=== PATIENT | female | born 1960 | race Caucasian/White ===

== ENCOUNTER 2020-05-05 05:19 | Day surgery (SDC) | payer OTHER ==
[2020-04-06 12:05] VITALS: BMI 25.4
--- NOTE | 2020-05-04 21:57 | PROC ---
Procedure Note Procedure: Pre procedure Diagnosis: Lumbar Spondylosis Post Procedure Diagnosis: same Anesthesia: Local Procedure Performed: Right and Left L3 L4 L5 Medial Branch Blocks under Fluoroscopic Guidance Procedure: After the risks and benefits were explained, informed consent was obtained. The patient was then taken to the procedure room and positioned prone on the procedure table. Time out was performed. The region overlying the appropriate vertebral bodies was identified using fluoroscopy. The skin was prepped and draped in the usual sterile fashion. The skin and soft tissues were anesthetized using 1% lidocaine. Using fluoroscopic guidance, 22 gauge 3.5 inch spinal needles were then introduced to the juncture of the superior articular processes and the transverse processes of the RIGHT L3, L4, and L5 medial branches are located. Omnipaque 180 confirmed appropriate needle placement. There was no epidural or vascular flow observed. .75% bupivacaine was drawn into a syringe. 0.5cc of this solution was then injected at each level. The same procedure was repeated on the LEFT side at the same levels. The patient tolerated the procedure well and there were no complications. The patient was taken to the post procedure recovery area in good condition. Vital signs remained stable before, and after the procedure. The patient was given oral follow-up instructions.The patient was givena follow up appointment with me in the near future. Elais Barbour D.O.
--- OUTSIDE RECORDS SUMMARY | 2020-05-05 05:23 | XMS ---
:1960 Author Organization [facility] Care Team Providers Name Role Phone Leonardo Veliz Unavailable Unavailable Erosa, Elias Unavailable Erosa, Elias Unavailable Lufrano, Savannah Unavailable Unavailable Lufrano, Savannah Unavailable Unavailable Lufrano, Savannah Unavailable Unavailable Lufrano, Savannah Unavailable Unavailable Lufrano, Savannah Unavailable Unavailable Lufrano, Savannah Unavailable Unavailable Lufrano, Savannah Unavailable Unavailable Paresh, Itha MD Unavailable Unavailable Paresh, Itha MD Unavailable Unavailable Paresh, Itha MD Unavailable Unavailable Paresh, Itha MD Unavailable Unavailable Paresh, Itha MD Unavailable Unavailable Paresh, Itha MD Unavailable Unavailable Paresh, Itha MD Unavailable Unavailable Paresh, Itha MD Unavailable Unavailable Paresh, Itha MD Unavailable Unavailable Paresh, Itha MD Unavailable Unavailable Paresh, Itha MD Unavailable Unavailable Paresh, Itha MD Unavailable Unavailable Paresh, Itha MD Unavailable Unavailable Paresh, Itha MD Unavailable Unavailable Paresh, Itha MD Unavailable Unavailable Re-disclosure Warning The records that you are about to access may contain information from federally- assisted alcohol or drug abuse programs. If such information is present, then the following federally mandated warning applies: This information has been disclosed to you from records protected by federal confidentiality rules (42 CFR part 2). The federal rules prohibit you from making any further disclosure of this information unless further disclosure is expressly permitted by the written consent of the person to whom it pertains or as otherwise permitted by 42 CFR part 2. A general authorization for the release of medical or other information is NOT sufficient for this purpose. The Federal rules restrict any use of the information to criminally investigate or prosecute any alcohol or drug abuse patient.The records that you are about to access may contain highly sensitive health information, the redisclosure of which is protected by Article 27-F of the [facility] Public Health law. If you continue you may haveaccess to information: Regarding HIV / AIDS; Provided by facilities licensed or operated by the [facility] Office of Mental Health; or Provided by the [facility] Office for People With Developmental Disabilities. If such information is present, then the following [facility] mandated warning applies: This information has been disclosed to you from confidential records which are protected by state law. State law prohibits you from making any further disclosure of this information without the specific written consent of the person to whom it pertains, or as otherwise permitted by law. Any unauthorized further disclosure in violation of state law may result in a fine or snf sentence or both. A general authorization for the release of medical or other information is NOT sufficient authorization for further disclosure. Encounters Encounter Providers Location Date Indications Data Source(s ) Attender: Elias 04/25/2020 [facility] ([facility] 12:00:00 AM EDT [facility]) Office Attender: Elias Barbour 03/30/2020 12:00:00 AM EDT [facility] ([facility] Office Attender: Elias Barbour 03/30/2020 12:00:00 AM EDT [facility] ([facility] Office Attender: Elias Barbour 03/30/2020 12:00:00 AM EDT [facility] ([facility] Office Attender: Elias Barbour 03/30/2020 12:00:00 AM EDT [facility] ([facility] Office Attender: Elias Barbour 03/30/2020 12:00:00 AM EDT [facility] ([facility] Office Attender: Elias Barbour 03/30/2020 12:00:00 AM EDT [facility] ([facility] Office Attender: Savannah Dodd 03/20/2020 12:00:00 AM [place] [facility] [place] [place]patient Attender: Nga 5T-LAB 12/22/2019 09:58:00 AM [facility] - Jean Yoder MD EDT - 12/22/2019 Hospita l 11:59:00 PM EDT Patient discharged. Outpatient Attender: Leonadro Torres 5T-LAB [facility] 11:59:00 PM EST Patient discharged. Outpatient Attender: Leonardo Torres 5T-LAB 08/06/2019 08:32:00 AM [facility] - [place] [facility] EST - 08/06/2019 Hospital 11:59:00 PM EST Patient discharged. Outpatient Attender: Leonardo Torres 5T-LAB 04/09/2019 08:45:00 AM [facility] - Jean Mcmillan EDT - 04/09/2019 Hospital 11:59:00 PM EDT Patient discharged. Medications Medication Brand Start Product Dose Route Administrative [facility] Indications Reaction Description Data Name Date Form Instructions Instructions Source(s) Diclofenac DICLOF 04/03/ GEL 1 complet DICLOFE NAC MEDGEN (St Sodium 0.01 2019 ed TOPICAL [facility]/MG TOPICA 12:00: Medical, Topical Gel L:8556 00 AM PC) DICLOFENAC 33 EDT TOPICAL:855 633 Diclofenac DICLOF 14/ GEL 1 complet DICLOFE NAC MED[facility] (St Sodium 0.01 2019 ed TOPICAL [facility]/MG TOPICA 12:00: Medical, Topical Gel L:8556 00 AM PC) DICLOFENAC 33 EDT TOPICAL:855 633 Diclofenac DICLOF 14/ GEL 1 complet DICLOFE NAC MED[facility] (St Sodium 0.01 2019 ed TOPICAL [facility] MG/MG TOPICA 12:00: Medical, Topical Gel L:8556 00 AM PC) DICLOFENAC 33 EDT TOPICAL:855 633 TEROCIN complet TEROCIN MEDG EN (St EXTERNAL 2019 ed EXTERNAL [facility] LOTION: 12:00: [facility] Medical, 00 AM PC) EDT TEROCIN complet TEROCIN MEDG EN (St EXTERNAL 2020 ed EXTERNAL [facility] LOTION: 12:00: LOTION Medical, 00 AM PC) EDT SPLINT complet SPLINT WRIST MEDGEN (St WRIST 2020 ed BRACE/LEFT-R [facility] BRACE/LEFT- 12:00: IGHT Medica l, RIGHT 00 AM MISCELLANEOU PC) MISCELLANEO EDT S US ADJUSTABLE, ADJUSTABLE, LATEX FREE, LATEX FREE, ONE SIZE ONE SIZE: ELBOW complet ELBOW MEDGEN ( St COMPRESSION 2019 ed COMPRESSION J [facility]n's MISCELLANEO 12:00: MISCELLANEO U Medical, US: 00 AM S PC) EDT ELBOW complet ELBOW MEDGEN ( St COMPRESSION 2019 ed COMPRESSION [facility] MISCELLANEO 12:00: MISCELLANEO U Medical, US: 00 AM S PC) EDT ELBOW complet ELBOW MEDGEN ( St COMPRESSION 2019 ed COMPRESSION J [facility]n's MISCELLANEO 12:00: MISCELLANEO U Medical, US: 00 AM S PC) EDT SPLINT complet SPLINT WRIST MEDGEN (St WRIST 2019 ed BRACE/LEFT-R [facility] BRACE/LEFT- 12:00: IGHT Medica l, RIGHT 00 AM MISCELLANEOU PC) MISCELLANEO EDT S US ADJUSTABLE, ADJUSTABLE, LATEX FREE, LATEX FREE, ONE SIZE ONE SIZE: TEROCIN complet TEROCIN MEDG EN (St EXTERNAL 2019 ed EXTERNAL [facility] LOTION: 12:00: LOTION Medical, 00 AM PC) EDT SPLINT complet SPLINT WRIST MEDGEN (St WRIST 2019 ed BRACE/LEFT-R [facility] BRACE/LEFT- 12:00: IGHT Medica l, RIGHT 00 AM MISCELLANEOU PC) MISCELLANEO EDT S US ADJUSTABLE, ADJUSTABLE, LATEX FREE, LATEX FREE, ONE SIZE ONE SIZE: SUPREP 03/20/ LIQUID 1 complet SUPREP CHRISTIAN L MED[facility] (St BOWEL PREP 2019 ed PREP KIT [facility] KIT:[id number] 12:00: Medica l, 00 AM PC) EDT SUPREP 03/20/ LIQUID 1 complet SUPREP CHRISTIAN L MED[facility] (St BOWEL PREP 2020 ed PREP KIT [facility] KIT:[id number] 12:00: Medica l, 00 AM PC) EDT SUPREP LIQUID 1 complet SUPREP CHRISTIAN L MEDGEN (St BOWEL PREP 2020 ed PREP KIT [facility] KIT:[id number] 12:00: Medica l, 00 AM PC) EDT SUPREP LIQUID 1 complet SUPREP CHRISTIAN L MEDGEN (St BOWEL PREP 2020 ed PREP KIT Jd huang KIT:[id number] 12:00: Medica l, 00 AM PC) EDT Insurance Providers Payer name Policy type / Policy ID Covered Covered libertarian's Policy Plan Coverage type libertarian ID relationship to Thompson Information thompson HE[employer] FIRST [id number] SP [id number] F HEALTH FIRST [id number] SP [id number] F HEALTH FIRST [id number] F CLAIMS Healthfirst Commercial [id number] 1 [id number] F Medicaid Medicaid [facility] Medicaid [id number] F [facility] Medicaid 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 ) M62.830 Muscle spasm of MUSCLE SPASM OF Problem 03/30/2020 MEDG EN (St back BACK 12:00:00 AM [facility], ) M47.896 Other spondylosis, OTHER SPONDYLOSIS, Problem 0 MED[facility] (St lumbar region LUMBAR REGION 12:00:[address] [facility], ) M25.521 Pain in right elbow PAIN IN RIGHT ELBOW Problem 020 MED[facility] (St 12:00:00 AM [facility], ) M79.18 MYALGIA, OTHER SITE MYALGIA, OTHER SITE Problem 020 [facility] ([facility] 12:00:[address] [facility] ) M62.830 Muscle spasm of MUSCLE SPASM OF Problem 03/30/2020 MEDG EN (St back BACK 12:00:00 AM [facility]) M47.896 Other spondylosis, OTHER SPONDYLOSIS, Problem 0 MEDGEN (St lumbar region LUMBAR REGION 12:00:00 AM [facility]) M25.521 Pain in right elbow PAIN IN RIGHT ELBOW Problem 020 MEDGEN (St 12:00:00 AM [facility]) M79.18 MYALGIA, OTHER SITE MYALGIA, OTHER SITE Problem 020 MEDGEN (St 12:00:00 AM [facility]) M62.830 Muscle spasm of MUSCLE SPASM OF Problem 03/30/2020 MEDG EN (St back BACK 12:00:00 AM [facility]) M47.896 Other spondylosis, OTHER SPONDYLOSIS, Problem 0 MEDGEN (St lumbar region LUMBAR REGION 12:00:00 AM [facility]) M25.521 Pain in right elbow PAIN IN RIGHT ELBOW Problem 020 MED[facility] (St 12:00:00 AM [facility]) Z12.11 Encounter for ENCOUNTER FOR Problem 03/20/2020 MEDGEN ( St screening for SCREENING FOR 12:00:00 AM [facility] malignant neoplasm MALIGNANT NEOPLASM [facility]) of colon OF COLON Z12.11 Encounter for ENCOUNTER FOR Problem 03/20/2020 MEDGEN ( St screening for SCREENING FOR 12:00:00 AM [facility] malignant neoplasm MALIGNANT NEOPLASM [facility]) of colon OF COLON Z12.11 Encounter for ENCOUNTER FOR Problem 03/20/2020 MED[facility] ( St screening for SCREENING FOR 12:00:00 AM [facility] malignant neoplasm MALIGNANT NEOPLASM [facility]) of colon OF COLON Z12.11 Encounter for ENCOUNTER FOR Problem 03/20/2020 MEDGEN ( St screening for SCREENING FOR 12:00:00 AM [facility]'s malignant neoplasm MALIGNANT NEOPLASM [facility]) of colon OF COLON Z11.59 Encounter for Screening for viral Diagnosis 12/22/2019 [facility] S [facility] [place] screening for other disease 09:58:00 AM Sai on viral diseases [facility] I49.3 Ventricular Ventricular Diagnosis 09/10/2019 S [facility] [place] premature premature 08:20:00 AM Ken depolarization depolarization EST Hospit al Surgeries/Procedures Procedure Description Date Indications Data Source(s) Documentation of current 04/25/2020 [facility] ([facility] medications (procedure) 12:00:00 AM EDT ELOY liu) OFFICE OUTPATIENT VISIT 04/25/2020 [facility] EN ([facility] 15 MINUTES 12:00:00 AM [facility] ) Documentation of current 03/30/2020 MED [facility] ([facility] medications (procedure) 12:00:00 AM EDT [facility], PC) Documentation of current 03/30/2020 [facility] ([facility] medications (procedure) 12:00:00 AM EDT [facility], PC) Documentation of current 03/30/2020 [facility] ([facility] medications (procedure) 12:00:00 AM EDT [facility], PC) Documentation of current 03/30/2020 [facility] ([facility] medications (procedure) 12:00:00 AM EDT [facility] PC) Documentation of current 03/30/2020 [facility] ([facility] medications (procedure) 12:00:00 AM EDT [facility], PC) Documentation of current 03/30/2020 [facility] ([facility] medications (procedure) 12:00:00 AM EDT [facility], PC) Documentation of current 03/30/2020 [facility] ([facility] medications (procedure) 12:00:00 AM EDT [facility], PC) Documentation of current 03/30/2020 [facility] ([facility] medications (procedure) 12:00:00 AM EDT [facility] PC) Documentation of current 03/30/2020 [facility] ([facility] medications (procedure) 12:00:00 AM EDT [facility] PC) Documentation of current 03/30/2020 [facility] ([facility] medications (procedure) 12:00:00 AM EDT [facility], PC) Documentation of current 03/30/2020 [facility] ([facility] medications (procedure) 12:00:00 AM EDT [facility], PC) Documentation of current 03/30/2020 [facility] ([facility] medications (procedure) 12:00:00 AM EDT alexa PC) Documentation of current 03/30/2020 [facility] ([facility] medications (procedure) 12:00:00 AM EDT alexa, ) Documentation of current 03/30/2020 [facility] ([facility] medications (procedure) 12:00:00 AM EDT [facility] PC) Documentation of current 03/30/2020 [facility] ([facility] medications (procedure) 12:00:00 AM EDT alexa, ) Documentation of current 03/30/2020 [facility] ([facility] medications (procedure) 12:00:00 AM EDT alexa ) Injection, ketorolac 03/30/2020 [facility] ([facility] tromethamine, per 15 mg 12:00:00 AM EDT alexa, ) OFFICE OUTPATIENT VISIT 03/30/2020 MED[facility] EN ([facility] 25 MINUTES 12:00:00 AM [facility], ) INJECTION SINGLE/PHONE MANAGER 03/30/2020 [facility] ([facility] TRIGGER POINT 1/2 MUSCLES 12:00:00 AM [facility], ) Documentation of current 03/30/2020 MED [facility] ([facility] medications (procedure) 12:00:00 AM EDT alexa ) Documentation of current 03/30/2020 MED [facility] ([facility] medications (procedure) 12:00:00 AM EDT alexa PC) Documentation of current 03/30/2020 MED [facility] ([facility] medications (procedure) 12:00:00 AM EDT alexa ) Documentation of current 03/30/2020 [facility] ([facility] medications (procedure) 12:00:00 AM EDT [facility], PC) Documentation of current 03/30/2020 [facility] ([facility] medications (procedure) 12:00:00 AM EDT alexa PC) Documentation of current 03/30/2020 MED [facility] ([facility] medications (procedure) 12:00:00 AM EDT alexa, PC) Documentation of current 03/30/2020 MED [facility] ([facility] medications (procedure) 12:00:00 AM EDT [facility], PC) Documentation of current 03/30/2020 MED [facility] ([facility] medications (procedure) 12:00:00 AM EDT [facility], PC) Documentation of current 03/30/2020 MED [facility] ([facility] medications (procedure) 12:00:00 AM EDT [facility], ) Documentation of current 03/30/2020 MED [facility] ([facility] medications (procedure) 12:00:00 AM EDT [facility], ) Documentation of current 03/30/2020 MED [facility] ([facility] medications (procedure) 12:00:00 AM T [facility], ) Documentation of current 03/30/2020 MED [facility] ([facility] medications (procedure) 12:00:00 AM [facility], ) Documentation of current 03/30/2020 MED [facility] ([facility] medications (procedure) 12:00:00 AM [facility], ) Injection, bupivicaine 03/30/2020 MEDGE N ([facility] hydrochloride, 30 ml 12:00:00 AM [facility]) Injection, lidocaine hcl 03/30/2020 MED [facility] ([facility] for intravenous infusion, 12:00:00 AM [facility]) 10 mg Injection, ketorolac 03/30/2020 [facility] ([facility] tromethamine, per 15 mg 12:00:00 AM [facility], ) OFFICE OUTPATIENT VISIT 03/30/2020 MEDG EN ([facility] 25 MINUTES 12:00:00 AM [facility]) INJECTION SINGLE/PHONE MANAGER 03/30/2020 [facility] ([facility] TRIGGER POINT 1/2 MUSCLES 12:00:00 AM [facility]) Documentation of current 03/30/2020 MED [facility] ([facility] medications (procedure) 12:00:00 AM [facility] Documentation of current 03/30/2020 MED [facility] ([facility] medications (procedure) 12:00:00 AM T [facility] ) Documentation of current 03/30/2020 MED [facility] ([facility] medications (procedure) 12:00:00 AM [facility], ) Documentation of current 03/30/2020 MED [facility] ([facility] medications (procedure) 12:00:00 AM T [facility], ) Documentation of current 03/30/2020 MED [facility] ([facility] medications (procedure) 12:00:00 AM [facility], ) Documentation of current 03/30/2020 MED GEN ([facility] medications (procedure) 12:00:00 AM T alexa, ELOY) Documentation of current 03/30/2020 MED [facility] ([facility] medications (procedure) 12:00:00 AM EDT Judie liu, PC) Documentation of current 03/30/2020 MED [facility] ([facility] medications (procedure) 12:00:00 AM EDT [facility], PC) Documentation of current 03/30/2020 MED [facility] ([facility] medications (procedure) 12:00:00 AM EDT [facility], PC) Documentation of current 03/20/2020 MED [facility] ([facility] medications (procedure) 12:00:00 AM EDT [facility]lexa, PC) Documentation of current 03/20/2020 MED [facility] ([facility] medications (procedure) 12:00:00 AM EDT [facility], PC) Documentation of current 03/20/2020 MED [facility] ([facility] medications (procedure) 12:00:00 AM EDT [facility], PC) Documentation of current 03/20/2020 MED [facility] ([facility] medications (procedure) 12:00:00 AM EDT ELOY liu) Documentation of current 03/20/2020 MED [facility] ([facility] medications (procedure) 12:00:00 AM EDT [facility] PC) Documentation of current 03/20/2020 MED [facility] ([facility] medications (procedure) 12:00:00 AM EDT ELOY liu) OFFICE OUTPATIENT NEW 30 03/20/2020 MED [facility] ([facility] MINUTES 12:00:00 AM ATIYA Holliday PC) Documentation of current 03/20/2020 MED [facility] ([facility] medications (procedure) 12:00:00 AM EDT ELOY liu) Documentation of current 03/20/2020 MED [facility] ([facility] medications (procedure) 12:00:00 AM EDT [facility] PC) Documentation of current 03/20/2020 [facility] ([facility] medications (procedure) 12:00:00 AM EDT [facility]lex[facility], PC) Documentation of current 03/20/2020 MED [facility] ([facility] medications (procedure) 12:00:00 AM EDT [facility]lex[facility], PC) Documentation of current 03/20/2020 MED [facility] ([facility] medications (procedure) 12:00:00 AM EDT Judie liu, PC) Documentation of current 03/20/2020 MED [facility] ([facility] medications (procedure) 12:00:00 AM EDT [facility], PC) OFFICE OUTPATIENT NEW 03/20/2020 MED [facility] ([facility] MINUTES 12:00:00 AM EDT Medical, PC) Documentation of current 03/20/2020 MED [facility] ([facility] medications (procedure) 12:00:00 AM EDT anaical, PC) Documentation of current 03/20/2020 MED GEN ([facility] medications (procedure) 12:00:00 AM EDT alexa, PC) Documentation of current 03/20/2020 MED [facility] ([facility] medications (procedure) 12:00:00 AM EDT alexa, PC) Documentation of current 03/20/2020 MED [facility] ([facility] medications (procedure) 12:00:00 AM EDT alexa, PC) Documentation of current 03/20/2020 MED [facility] ([facility] medications (procedure) 12:00:00 AM EDT alexa, PC) Documentation of current 03/20/2020 MED [facility] ([facility] medications (procedure) 12:00:00 AM EDT alexa, PC) OFFICE OUTPATIENT NEW 03/20/2020 MED [facility] ([facility] MINUTES 12:00:00 AM EDT Medical, PC) Documentation of current 03/20/2020 MED [facility] ([facility] medications (procedure) 12:00:00 AM EDT alex[facility], PC) OFFICE CONSULTATION 03/20/2020 [facility] ( [facility] NEW/ESTAB PATIENT 40 MIN 12:00:00 AM EDT Medical, PC) Venipuncture 09/10/2019 [facility] 08:32:38 AM EST System - 09/10/2019 10:00:07 AM EST Venipuncture 08/06/2019 [facility] 08:44:33 AM EST System - 08/06/2019 10:00:06 AM EST Venipuncture 04/09/2019 [facility] 08:56:21 AM EDT System - 04/09/2019 10:00:05 AM EDT CBC w/Auto Differential- 04/09/2019 [facility] MV Only 08:56:21 AM EDT System - 04/09/2019 09:03:00 AM EDT Results ID Date Data Source [id number] 04/30/2020 11:05:00 AM EDT [facility] Name Value Range Interpretation Description Data Sup porting Code Source(s) Document(s ) SARS [facility] coronavirus 2 RNA This lab was ordered by [facility] and reported by [facility]. ID Date Data Source [id number] 04/02/2020 11:41:00 AM EDT [facility] Name Value Range Interpretation Description Data Sup porting Code Source(s) Document(s ) SARS [facility] coronavirus 2 RNA This lab was ordered by [facility] and reported by [facility]. ID Date Data Source [id number] 02/10/2020 02:45:00 PM EDT [facility] Name Value Range Interpretation Code Description Data Sarah rce(s) Supporting Document(s ) COV2 [facility] This lab was ordered by [facility] tee reported by [facility]. ID Date Data Source [id number] 09/16/2011 08:31:36 AM EST [facility] Name Value Range Interpretation Description Data Source(s ) Supporting Code Document(s ) DirectAn Negative Normal (applies to Direct [facility] tiglobul non-numeric Antiglobulin [facility] inTest. results) Test. ID Date Data Source [id number] 09/16/2011 08:31:36 AM EST [facility] Name Value Range Interpretation Description Data Sup porting Code Source(s) Document(s ) Type A Normal (applies Type [facility] to non-numeric Health results) System AntibodyScreen Negative Normal (applies Antibody [facility] to non-numeric Screen Health results) System D Ab [Titer] in Rh Normal (applies Rh Factor, [facility] Serum or Plasma Positive to non-numeric Whole Blood Health results) System ID Date Data Source [id number] 09/16/2011 11:46:29 AM EST [facility] Name Value Range Interpretation Description Data Sup porting Code Source(s) Document(s ) D Ab [Titer] in Rh Normal (applies Rh Factor, [facility] Serum or Plasma Positive to non-numeric Whole Blood Health results) System Type A Normal (applies Type [facility] to non-numeric Health results) System AntibodyScreen Negative Normal (applies Antibody [facility] to non-numeric Screen Health results) System ID Date Data Source [id number] 09/16/2011 03:38:20 PM EST [facility] blood for type and crossmatch stat Name Value Range Interpretation Description Data Sup porting Code Source(s) Document(s ) D Ab [Titer] in Cancelled Rh Factor, [facility] Serum or Plasma [facility] System Rh/Du Cancelled Rh/Du [facility] Type Cancelled Type [facility] AntibodyScreen Cancelled Antibody [facility] duplicate Screen Health order System ID Date Data Source [id number] 09/16/2011 05:10:00 PM EST [facility] Name Value Range Interpretation Description Data Sup porting Code Source(s) Document(s ) TissueExam SEE TEXT Normal (applies Tissue Exam [facility] CLINICAL to non-numeric Health INFORMATION: results) System Menorrhagia, fibroid uterus.PREOPERAT JUAN DIAGNOSIS: Same.POSTOPERATI VE DIAGNOSIS: Same.Surgical Pathology ReportFINAL DIAGNOSIS:Uterus , morsellated hysterectomy:Con sistent with leiomyomas and adenomyomas.Prol iferative endometrium with extensive adenomyosis.BRAYAN S DESCRIPTION:In formalin, labeled "uterus with fibroids", the specimen consists of multiple irregularly shaped but predominantly cylindrical to spiral pieces of ratliff firm tissue, consistent with morsellated uterus, together weighing approximately 200grams. Some of the pieces are surfaced by a layer of fibrous tissue consistent with uterine serosa. Focal brown, finely granular lining appears to represent the endometrial surface. Cut sections of some of the cylinders reveal homogeneous ratliff shining tissue. Others have a coarser vaguely whorled cut surface consistent with fibroids. Vice President Underwriting sections are submitted. Summary of sections: #1,2- presumable endometrium; #3-6- fibroids.GO/stEl ectronically signed [email or web address](Signed out 09/19/2011) ID Date Data Source [id number] 09/17/2011 07:55:00 AM EST [facility] Name Value Range Interpretation Description Data Sup porting Code Source(s) Document(s ) Erythrocytes 3.95 Normal (applies RBC Count [facility] [#/volume] in {10\\S\\6_ to non-numeric Health Blood by uL} results) System Automated count Leukocytes 14.1 Above high normal WBC Count [facility] [#/volume] in {10\\S\\3_ Health Unspecified uL} System specimen by Automated count Hemoglobin 10.6 Below low normal Hemoglobin, [facility] [Mass/volume] in {gm/dL} Whole Blood Health Blood System Erythrocyte mean 31.6 Below low normal [facility] corpuscular {gm/dL} Health hemoglobin System concentration [Mass/volume] by Automated count Erythrocyte mean 84.8 fl Normal (applies MCV [facility] corpuscular to non-numeric Health volume [Entitic results) System volume] by Automated count Erythrocyte 15.5 % Above high normal RDW [facility] distribution Health width [Entitic System volume] by Automated count Hematocrit 33.5 % Below low normal Hematocrit, [facility] [Volume Whole Blood Health Fraction] of System Blood Erythrocyte mean 26.8 pg Normal (applies MCH [facility] corpuscular to non-numeric Health hemoglobin results) System [Entitic mass] by Automated count Platelet mean 9.9 fl Normal (applies MPV [facility] volume [Entitic to non-numeric Health volume] in Blood results) System by Automated count Eosinophils 0.0 Normal (applies Eosinophil [facility] [#/volume] in {10\\S\\3} to non-numeric Count Blood Health Blood results) System Platelets 293 Normal (applies Platelet [facility] [#/volume] in {10\\S\\3_ to non-numeric Count Health Plasma by uL} results) System Automated count Monocytes 1.5 Normal (applies Monocyte [facility] [#/volume] in {10\\S\\3_ to non-numeric Count Health Blood by Manual uL} results) System count Basophils 0.01 Normal (applies Basophil [facility] [#/volume] in {10\\S\\3_ to non-numeric Count Health Blood by uL} results) System Automated count Neutrophils/100 78.3 % Normal (applies Neutrophil % Jos eAngel shmuel leukocytes in to non-numeric Health Blood by results) System Automated count Neutrophils 11.0 Normal (applies Absolute [facility] [#/volume] in {10\\S\\3_ to non-numeric Neutrophil Health Body fluid uL} results) Count System Lymphocyte 1.6 Normal (applies Lymphocyte [facility] percent {10\\S\\3_ to non-numeric Absolute Health differential uL} results) System count (procedure) Monocytes/100 10 % Above high normal Monocyte % [facility] leukocytes in Health Blood System Basophils/100 0 % Normal (applies Basophil % [facility] leukocytes in to non-numeric Health Unspecified results) System specimen by Manual count Lymphocytes 11 % Below low normal Lymphocyte % [facility] [#/volume] in Health Blood by System Automated count Eosinophils/100 0 % Below low normal Eosinophil % [facility] leukocytes in Health Unspecified System specimen ID Date Data Source [id number] 02/18/2012 02:00:00 PM EDT [facility] Name Value Range Interpretation Description Data Sup porting Code Source(s) Document(s ) Bacteria Micro Result Final Normal (applies Cult Female [facility] identified Culture Reading to non-numeric Genital Health in Genital Note::NEGATIVE FOR results) System specimen by NEISSERIA Aerobe GONORRHEAOAENEGATI culture VE FOR YEASTLIKE ORGANISMSNEGATIVE FOR GROUP B BETA HEMOLYTIC STREPTOCOCCI ID Date Data Source [id number] 02/18/2012 02:21:00 PM EDT [facility] Name Value Range Interpretation Description Data Sup porting Code Source(s) Document(s ) C.Trac Not Normal (applies C. [facility] homati DetectedReference to non-numeric Trachomatis Healt h sAmp Range: Not Detected results) Amp System N.Gono Not Normal (applies N. Gonorrhea [facility] rrheab DetectedReference to non-numeric by LCR Health yLCR Range: Not Detected results) System This test was performed using the BD ProbeT[employer](TM) Chlamydia trachomatis and Neisseria gonorrhoeae Amplified DNA Assays. Test Performed at: [facility], [place] [address] Chantel Suresh M.D. ID Date Data Source [id number] 02/18/2012 02:21:00 PM EDT [facility] Name Value Range Interpretation Description Data Sup porting Code Source(s) Document(s ) Trichomonas T. VAGINALIS Normal (applies Trichomonas [facility] vaginalis CULTURESOURCE to non-numeric Wet [facility] [Presence] in : results) System Unspecified specimen by GENITALT. Wet VAGINALIS preparation CULTURE: FINALT. VAGINALIS CULTURE: No Trichomonas vaginalis seen. ID Date Data Source [id number] 05/25/2012 07:42:00 AM EST [facility] Name Value Range Interpretation Description Data Sup porting Code Source(s) Document(s ) Color YELLOW Normal (applies Color [facility] to non-numeric Health results) System Appearance of CLEAR Normal (applies Urine [facility] Urine to non-numeric Appearance Health results) System pH.. 6.5 Normal (applies pH.. [facility] {pH_units} to non-numeric Health results) System Specific 1.020 Normal (applies Urine [facility] gravity of to non-numeric Specific Health Urine results) [place] [facility] Glucose,UA NEGATIVE Normal (applies Glucose, UA [facility] to non-numeric Health results) System Negative Protein NEGATIVE Normal (applies Protein [facility] [Mass/volume] in to non-numeric Health S yste Serum or Plasma results) BilirubinUrine NEGATIVE Normal (applies Bilirubin Urine [facility] to non-numeric Health System results) Urobilinogen 0.20 {eu/dL} Normal (applies Urobilinogen UA [facility] [Mass/volume] in to non-numeric Health S yste Urine results) Ketones NEGATIVE Normal (applies Ketones UA [facility] [Mass/volume] in to non-numeric Health S yste Urine results) Negative Nitrate+Nitrite NEGATIVE Normal (applies to Nitrite Jose Angel shmuel Health [Mass/volume] in non-numeric results) Sy stem Unspecified specimen Negative Leukocyte esterase NEGATIVE Normal (applies Leukocyte Kena ase [facility] [Units/volume] in to non-numeric Concentration a [facility] System Urine results) Negative Leukocytes 0-3 Normal (applies to White Blood Cells [facility] [#/volume] in non-numeric System Unspecified specimen results) by Automated count Epithelial cells 3-5 Normal (applies to Epithelial Betzaida ls [facility] Health [Presence] in non-numeric System Unspecified specimen results) by Wet preparation RedBloodCells 0-3 Normal (applies to Red Blood Cells [facility] non-numeric System results) Bacteria [Presence] rare Normal (app[facility] in Unspecified non-numeric System specimen results) UrineBlood NEGATIVE Normal (applies to Urine Blood [facility] non-numeric System results) ID Date Data Source [id number] 05/25/2012 07:42:00 AM EST [facility] al[facility] System Name Value Range Interpretation Description Data Sup porting Code Source(s) Document(s ) aPTT in Blood 25.7 Normal (applies Activated [facility] by Coagulation {Seconds to non-numeric Partial Health assay } results) Thromboplastin System Time ID Date Data Source [id number] 05/25/2012 07:42:00 AM EST [facility] System Name Value Range Interpretation Description Data Sup porting Code Source(s) Document(s ) INR in Blood by 0.94 Normal (applies INR Result [facility] Coagulation {Ratio} to non-numeric Health System assay results) Normal = 0.7-1.1Therapeutic = 2.0-3.0Mec hanical Heart = 3.0-4.5 Prothrombintime(PT) 10.10 Normal (applies to Prothrom bin time [facility] non-numeric (PT) System results) ID Date Data Source [id number] 05/25/2012 07:42:00 AM EST [facility]elfi[facility] System Name Value Range Interpretation Description Data Sup porting Code Source(s) Document(s ) Erythrocytes 5.16 Normal (applies RBC Count [facility] [#/volume] in {10\\S\\6_ to non-numeric Health Blood by uL} results) System Automated count Leukocytes 10.3 Normal (applies WBC Count [facility] [#/volume] in {10\\S\\3_ to non-numeric Health Unspecified uL} results) System specimen by Automated count Erythrocyte mean 91.7 fl Normal (applies MCV [facility] corpuscular to non-numeric Health volume [Entitic results) System volume] by Automated count Hemoglobin 15.3 Normal (applies Hemoglobin, [facility] [Mass/volume] in {gm/dL} to non-numeric Whole Blood Health Blood results) System Hematocrit 47.3 % Above high normal Hematocrit, [facility] [Volume Whole Blood Health Fraction] of System Blood Erythrocyte 14.0 % Normal (applies RDW [facility] distribution to non-numeric Health width [Entitic results) System volume] by Automated count Erythrocyte mean 29.7 pg Normal (applies MCH [facility] corpuscular to non-numeric Health hemoglobin results) System [Entitic mass] by Automated count Erythrocyte mean 32.3 Below low normal MCHC [facility] corpuscular {gm/dL} Health hemoglobin System concentration [Mass/volume] by Automated count Platelets 273 Normal (applies Platelet [facility] [#/volume] in {10\\S\\3_ to non-numeric Count Health Plasma by uL} results) System Automated count Monocytes 0.7 Normal (applies Monocyte [facility] [#/volume] in {10\\S\\3_ to non-numeric Count Health Blood by Manual uL} results) System count Eosinophils 0.3 Normal (applies Eosinophil [facility] [#/volume] in {10\\S\\3} to non-numeric Count Blood Health Blood results) System Platelet mean 10.4 fl Normal (applies MPV [facility] volume [Entitic to non-numeric Health volume] in Blood results) System by Automated count Neutrophils 6.5 Normal (applies Absolute [facility] [#/volume] in {10\\S\\3_ to non-numeric Neutrophil Health Body fluid uL} results) Count System Lymphocyte 2.9 Normal (applies Lymphocyte [facility] percent {10\\S\\3_ to non-numeric Absolute Health differential uL} results) System count (procedure) Basophils 0.03 Normal (applies Basophil [facility] [#/volume] in {10\\S\\3_ to non-numeric Count Health Blood by uL} results) System Automated count Monocytes/100 6.5 % Normal (applies Monocyte % [facility] leukocytes in to non-numeric Health Blood results) System Eosinophils/100 2.6 % Normal (applies Eosinophil % Jose Angel shmuel leukocytes in to non-numeric Health Unspecified results) System specimen Neutrophils/100 62.7 % Normal (applies Neutrophil % Jose Angel shmuel leukocytes in to non-numeric Health Blood by results) System Automated count Lymphocytes 27.9 % Normal (applies Lymphocyte % [facility] [#/volume] in to non-numeric Health Blood by results) System Automated count Basophils/100 0.3 % Normal (applies Basophil % [facility] leukocytes in to non-numeric Health Unspecified results) System specimen by Manual count ID Date Data Source [id number] 05/25/2012 07:42:00 AM EST [facility] Name Value Range Interpretation Description Data Sup porting Code Source(s) Document(s ) Sodium 140 Normal (applies Sodium, Serum [facility] [Moles/volume] in mmol/L to non-numeric Health Serum or Plasma results) System Carbon dioxide, 22.0 Normal (applies CO2, Serum [facility] total mmol/L to non-numeric Health [Moles/volume] in results) System Serum or Plasma Chloride 107 Normal (applies Chloride, [facility] [Moles/volume] in mmol/L to non-numeric Serum Health Serum or Plasma results) System Potassium 4.7 Normal (applies Potassium, [facility] [Mass/volume] in mmol/L to non-numeric Serum Health Serum or Plasma results) System Urea nitrogen 11 Normal (applies Blood Urea [facility] [Mass/volume] in mg/dl to non-numeric Nitrogen, Health Serum or Plasma results) Serum System Glucose 114 Above high Glucose, [facility] [Mass/volume] in mg/dL normal Serum Health Serum or Plasma System TotalProtein 7.2 Normal (applies Total Protein [facility] mg/dl to non-numeric Health results) System Alkaline 77 Normal (applies Alkaline [facility] phosphatase {IU/L} to non-numeric Phosphatase, Health isoenzymes results) Serum System [Enzymatic activity/volume] in Serum or Plasma by Heat stability Creatinine 0.70 Normal (applies Creatinine, [facility] [Mass/volume] in mg/dl to non-numeric Serum Health Serum or Plasma results) System Aspartate 15 Normal (applies Aspartate [facility] aminotransferase {IU/L} to non-numeric Transaminase, Heal th [Enzymatic results) Serum System activity/volume] in Serum or Plasma by With P-5'-P Albumin 4.4 Normal (applies Albumin, [facility] [Mass/volume] in {gm/dl} to non-numeric Serum Health Serum or Plasma results) System Bilirubin.total 0.5 Normal (applies Bilirubin, [facility] [Mass/volume] in mg/dl to non-numeric Serum Total Health Serum or Plasma results) System Calcium 9.4 Normal (applies Calcium, [facility] [Mass/volume] in mg/dl to non-numeric Total Serum Health Serum or Plasma results) System Alanine 24 Normal (applies Alanine [facility] aminotransferase {IU/L} to non-numeric Aminotransfer Heal th [Enzymatic results) ase, Serum System activity/volume] in Serum or Plasma I.Phosphorus 3.4 Normal (applies I. Phosphorus [facility] mg/dl to non-numeric Health results) System Anion gap in Serum 11.00 Normal (applies Anion Gap Jose Angel shmuel or Plasma mmol/L to non-numeric Health results) System Urate 5.2 Normal (applies Uric Acid, [facility] [Mass/volume] in mg/dl to non-numeric Serum Health Serum or Plasma results) System A/GRatio 1.57 Normal (applies A/G Ratio [facility] to non-numeric Health results) System Glomerular 87.35 Normal (applies GFR [facility] filtration to non-numeric Health rate/1.73 sq results) System M.predicted [Volume Rate/Area] in Serum or Plasma by Creatinine-based formula (CKD-EPI) eGFR will provide clinicians with a more accurate indicator of renal function then the serum creatinine. The eGFR is automa tically calculated from an empiric formula (endorsed by the National [employer] ion) which incorporates age, sex, and race.Clinicians may notice surprisingly low GFR's with serum creatinine valueswithin normal range- particularly in elderly wo men (with low muscle mass).In the hospital setting, the eGFR should add an element of safety in drug dosing, in assessing the risk of IV contrast administration, and in assessing vascular risk.The NKF staging system is as follows:Normal: eGFR >90 with no kidney markersStage 1: eGFR >90 with kidney markers*Stage 2: eGFR 60- 89Stage 3: eGFR 30-59Stage 4: eGFR 15-29Stage 5: eGFR <15 (usually requir ing dialysis)*Markers include: Proteinuria, Hematuria, abnormal imaging-studies, or other blood or urine test abnormalities ID Date Data Source [id number] 08/25/2012 12:13:00 PM EST [facility] Name Value Range Interpretation Description Data Sup porting Code Source(s) Document(s ) LMP.. [id number] Normal (applies LMP.. [facility] to non-numeric Health results) System SOURCE.. ecc Normal (applies SOURCE.. [facility] to non-numeric Health results) System PRE.PAP unkwon Normal (applies PRE.PAP [facility] to non-numeric Health results) System CLINICALINFO annual Normal (applies CLINICAL [facility] RMATION. to non-numeric INFORMATION. Health results) System ReportStatus FINAL Normal (applies Report Status [facility] to non-numeric Health results) System NUMBEROFSLID 1.00 Normal (applies NUMBER OF SLIDES [facility] ES to non-numeric Health results) System STATEMENTOFA SEE Normal (applies STATEMENT OF [facility] DEQUACY NOTESatisfac to non-numeric ADEQUACY Health tory for results) System evaluation.E ndocervical/ transformati on zone componentpre sent.Age and/or menstrual status not provided PREV.BX 0 Normal (applies PREV.BX [facility] to non-numeric Health results) System INTERPRETATI SEE Normal (applies INTERPRETATION/RE [facility] ON/RESULT1 NOTENegative to non-numeric SULT 1 Health for results) System intraepithel ial lesion or malignancy. GENERALCATEG DNR Normal (applies GENERAL [facility] ORIZATION to non-numeric CATEGORIZATION Health results) System INTERPRETATI DNR Normal (applies INTERPRETATION/RE [facility] ON/RESULT2 to non-numeric SULT 2 Health results) System COMMENTCYTO SEE Normal (applies COMMENT CYTO [facility] NOTESlide to non-numeric Health Preparation results) System performed at:[facility] [place], [place] [address]CLIA No.: [id number] CYTOTECHNOLO SEE NOTEMXC, Normal (applies PAPER MILL SUPERVISOR [facility] GIST CT(ASCP) to non-numeric Health results) System PATHOLOGIST. DNR Normal (applies PATHOLOGIST. [facility] to non-numeric Health results) System REVIEWCYTOTE DNR Normal (applies REVIEW [facility] CHNOLOGIST to non-numeric PAPER MILL SUPERVISOR Health results) System HPVHIGHRISK NOT Normal (applies HPV HIGH RISK [facility] DETECTEDRefe to non-numeric Health rence Range: results) System Not DetectedTest ed for High Risk types 16,18,31,33, 35,39,45,51, 52,56,58,59, 68.The analytical performance characterist ics of thisassay, when used to test Surepath or Vaginalspeci mens, have been determined by [employer].Methodo logy: Hybrid Capture with signalamplif ication. Test Performed at: [facility], [place] [address] Chantel Suresh M.D. ID Date Data Source [id number] 08/25/2012 12:13:00 PM EST [facility] Name Value Range Interpretation Description Data Sup porting Code Source(s) Document(s ) C.Trac Not Normal (applies C. [facility] homati DetectedReference to non-numeric Trachomatis Healt h sAmp Range: Not Detected results) Amp System N.Gono Not Normal (applies N. Gonorrhea [facility] rrheab DetectedReference to non-numeric by LCR Health yLCR Range: Not Detected results) System This test was performed using the [employer] Pro[employer] Software(TM) Chlamydia trachomatis and Neisseria gonorrhoeae Amplified DNA Assays. Test Performed at: [facility], [place] [address] Chantel Suresh M.D. ID Date Data Source [id number] 04/09/2019 08:56:00 AM EDT [facility] System Name Value Range Interpretation Description Data Sup porting Code Source(s) Document(s ) Creatinine 0.90 Normal (applies Creatinine, [facility] [Mass/volume] mg/dl to non-numeric Serum Health Syst em in Serum or results) Plasma ID Date Data Source [id number] 12/28/2019 01:51:35 AM EDT [facility] System Name Value Range Interpretation Description Data Sup porting Code Source(s) Document(s ) Erythrocytes 5.12 Normal (applies RBC Count [facility] [#/volume] in {10^6_uL to non-numeric Health Blood by } results) System Automated count Leukocytes 10.3 Normal (applies WBC Count [facility] [#/volume] in {10^3_uL to non-numeric Health Unspecified } results) System specimen by Automated count Hematocrit 47.3 % Above high Hematocrit [facility] [Volume normal Health Fraction] of System Blood Hemoglobin 15.3 Normal (applies Hemoglobin [facility] [Mass/volume] in {gm/dL} to non-numeric Health Blood results) System Erythrocyte mean 29.9 pg Normal (applies MCH [facility] corpuscular to non-numeric Health hemoglobin results) System [Entitic mass] by Automated count Erythrocyte mean 92.4 fl Normal (applies MCV [facility] corpuscular to non-numeric Health volume [Entitic results) System volume] by Automated count Erythrocyte 13.0 % Normal (applies RDW-CV [facility] distribution to non-numeric Health width [Entitic results) System volume] by Automated count Erythrocyte mean 32.3 Below low normal MCHC [facility] corpuscular {gm/dL} Health hemoglobin System concentration [Mass/volume] by Automated count Platelet mean 10.2 fl Normal (applies MPV [facility] volume [Entitic to non-numeric Health volume] in Blood results) System by Automated count Platelets 298 Normal (applies Platelet Count [facility] [#/volume] in {10^3_uL to non-numeric Health Plasma by } results) System Automated count Neutrophils 5.8 Normal (applies Neutrophil # [facility] [#/volume] in {10^3_uL to non-numeric Health Body fluid } results) System Monocytes 0.8 Normal (applies Monocyte # [facility] [#/volume] in {10^3_uL to non-numeric Health Blood by Manual } results) System count Eosinophils 0.12 Normal (applies Eosinophil # [facility] [#/volume] in {10^3_uL to non-numeric Health Blood } results) System Basophils 0.08 Normal (applies Basophil # [facility] [#/volume] in {10^3_uL to non-numeric Health Blood by } results) System Automated count Lymphocyte 3.4 Normal (applies Lymphocyte # [facility] percent {10^3_uL to non-numeric Health differential } results) System count (procedure) Monocytes/100 7.6 % Normal (applies Monocyte % [facility] leukocytes in to non-numeric Health Blood results) System Neutrophils/100 56.7 % Normal (applies Neutrophil % Jose Angel shmuel leukocytes in to non-numeric Health Blood by results) System Automated count Lymphocytes 33.2 % Normal (applies Lymphocyte % [facility] [#/volume] in to non-numeric Health Blood by results) System Automated count Eosinophils/100 1.2 % Normal (applies Eosinophil % Jose Angel shmuel leukocytes in to non-numeric Health Unspecified results) System specimen Basophils/100 0.8 % Normal (applies Basophil % [facility] leukocytes in to non-numeric Health Unspecified results) System specimen by Manual count Nucleated 0.0 Normal (applies NRBC % [facility] erythrocytes {/100_WB to non-numeric Health [#/volume] in C} results) System Body fluid ImmatureGranuloc 0.5 % Normal (applies Immature [facility] ytes% to non-numeric Granulocytes % Health results) System ImmatureGranuloc 0.05 Normal (applies Immature [facility] ytes# {10^3_uL to non-numeric Granulocytes # Health } results) System NRBC# 0.00 Below low normal NRBC # [facility] {10^3_uL Health } System ID Date Data Source [id number] 12/28/2019 01:51:35 AM EDT [facility] System Name Value Range Interpretation Description Data Sup porting Code Source(s) Document(s ) Sodium 141 Normal (applies Sodium, Serum [facility] [Moles/volume mmol/L to non-numeric Health Syst em ] in Serum or results) Plasma Potassium 4.9 Normal (applies Potassium, [facility] [Mass/volume] mmol/L to non-numeric Serum Health Syst em in Serum or results) Plasma Chloride 107 Normal (applies Chloride, [facility] [Moles/volume mmol/L to non-numeric Serum Health Syst em ] in Serum or results) Plasma Glucose 115 Above high normal Glucose, Serum [facility] [Mass/volume] mg/dL Health System in Serum or Plasma Carbon 26.0 Normal (applies CO2, Serum [facility] dioxide, mmol/L to non-numeric Health System total results) [Moles/volume ] in Serum or Plasma Calcium 9.6 Normal (applies Calcium, Total [facility] [Mass/volume] mg/dl to non-numeric Serum Health Syst em in Serum or results) Plasma Urea nitrogen 14 mg/dl Normal (applies Blood Urea [facility] [Mass/volume] to non-numeric Nitrogen, Health Syst em in Serum or results) Serum Plasma Creatinine 0.80 Normal (applies Creatinine, [facility] [Mass/volume] mg/dl to non-numeric Serum Health Syst em in Serum or results) Plasma Anion gap in 8.00 Normal (applies Anion Gap [facility] Serum or mmol/L to non-numeric Health System Plasma results) ID Date Data Source [id number] 12/28/2019 01:51:35 AM EDT [facility] System Name Value Range Interpretation Description Data Sup porting Code Source(s) Document(s ) Prothrombintim 10.00 Normal (applies Prothrombin [facility](PT) {seconds to non-numeric time (PT) Health System } results) INR in Blood 0.94 Normal (applies INR Result [facility] by Coagulation {Ratio} to non-numeric Health Sys tem assay results) Normal = 0.7-1.1Therapeutic = 2.0-3.0Mec hanical Heart = 3.0-4.5 ID Date Data Source [id number] 12/28/2019 01:51:35 AM EDT [facility] System Name Value Range Interpretation Description Data Sup porting Code Source(s) Document(s ) Leukocytes 9.7 Normal (applies WBC Count [facility] [#/volume] in {10^3_uL to non-numeric Health Unspecified } results) System specimen by Automated count Erythrocytes 5.07 Normal (applies RBC Count [facility] [#/volume] in {10^6_uL to non-numeric Health Blood by } results) System Automated count Hemoglobin 15.2 Normal (applies Hemoglobin [facility] [Mass/volume] in {gm/dL} to non-numeric Health Blood results) System Hematocrit 46.4 % Above high Hematocrit [facility] [Volume normal Health Fraction] of System Blood Erythrocyte mean 91.5 fl Normal (applies MCV [facility] corpuscular to non-numeric Health volume [Entitic results) System volume] by Automated count Erythrocyte mean 30.0 pg Normal (applies MCH [facility] corpuscular to non-numeric Health hemoglobin results) System [Entitic mass] by Automated count Erythrocyte mean 32.8 Below low normal [facility] corpuscular {gm/dL} Health hemoglobin System concentration [Mass/volume] by Automated count Platelets 284 Normal (applies Platelet Count [facility] [#/volume] in {10^3_uL to non-numeric Health Plasma by } results) System Automated count Erythrocyte 13.2 % Normal (applies RDW-CV [facility] distribution to non-numeric Health width [Entitic results) System volume] by Automated count Platelet mean 9.8 fl Normal (applies MPV [facility] volume [Entitic to non-numeric Health volume] in Blood results) System by Automated count Monocytes 0.7 Normal (applies Monocyte # [facility] [#/volume] in {10^3_uL to non-numeric Health Blood by Manual } results) System count Eosinophils 0.16 Normal (applies Eosinophil # [facility] [#/volume] in {10^3_uL to non-numeric Health Blood } results) System Neutrophils 6.3 Normal (applies Neutrophil # [facility] [#/volume] in {10^3_uL to non-numeric Health Body fluid } results) System Basophils 0.05 Normal (applies Basophil # [facility] [#/volume] in {10^3_uL to non-numeric Health Blood by } results) System Automated count Lymphocyte 2.5 Normal (applies Lymphocyte # [facility] percent {10^3_uL to non-numeric Health differential } results) System count (procedure) Monocytes/100 7.0 % Normal (applies Monocyte % [facility] leukocytes in to non-numeric [facility] Blood results) System Neutrophils/100 64.7 % Normal (applies Neutrophil % Jose Angel shmuel leukocytes in to non-numeric Health Blood by results) System Automated count Eosinophils/100 1.6 % Normal (applies Eosinophil % Jose Angel shmuel leukocytes in to non-numeric Health Unspecified results) System specimen Lymphocytes 25.2 % Normal (applies Lymphocyte % [facility] [#/volume] in to non-numeric Health Blood by results) System Automated count Basophils/100 0.5 % Normal (applies Basophil % [facility] leukocytes in to non-numeric [facility] Unspecified results) System specimen by Manual count ImmatureGranuloc 1.0 % Above high Immature [facility] ytes% normal Granulocytes % Health System Nucleated 0.0 Normal (applies NRBC % [facility] erythrocytes {/100_WB to non-numeric Health [#/volume] in C} results) System Body fluid NRBC# 0.00 Below low normal NRBC # [facility] {10^3_uL [facility] } System ImmatureGranuloc 0.10 Above high Immature [facility] ytes# {10^3_uL normal Granulocytes # Health } System ID Date Data Source [id number] 12/28/2019 01:51:35 AM EDT [facility] System Name Value Range Interpretation Description Data Sup porting Code Source(s) Document(s ) Sodium 142 Normal (applies Sodium, Serum [facility] [Moles/volume mmol/L to non-numeric Health Syst em ] in Serum or results) Plasma Potassium 4.9 Normal (applies Potassium, [facility] [Mass/volume] mmol/L to non-numeric Serum Health Syst em in Serum or results) Plasma Chloride 107 Normal (applies Chloride, [facility] [Moles/volume mmol/L to non-numeric Serum Health Syst em ] in Serum or results) Plasma Carbon 26.0 Normal (applies CO2, Serum [facility] dioxide, mmol/L to non-numeric Health System total results) [Moles/volume ] in Serum or Plasma Glucose 129 Above high normal Glucose, Serum [facility] [Mass/volume] mg/dL [facility] System in Serum or Plasma Creatinine 0.80 Normal (applies Creatinine, [facility] [Mass/volume] mg/dl to non-numeric Serum Health Syst em in Serum or results) Plasma Urea nitrogen 48 mg/dl Above high normal Blood Urea [facility] [Mass/volume] Nitrogen, [facility] System in Serum or Serum Plasma Calcium 9.9 Normal (applies Calcium, Total [facility] [Mass/volume] mg/dl to non-numeric Serum Health Syst em in Serum or results) Plasma Anion gap in 9.00 Normal (applies Anion Gap [facility] Serum or mmol/L to non-numeric Health System Plasma results) ID Date Data Source [id number] 12/28/2019 01:51:35 AM EDT [facility] Name Value Range Interpretation Description Data Sup porting Code Source(s) Document(s ) Prothrombintim 10.10 Normal (applies Prothrombin [facility](PT) {seconds to non-numeric time (PT) Health System } results) INR in Blood 0.95 Normal (applies INR Result [facility] by Coagulation {Ratio} to non-numeric Health Sys tem assay results) Normal = 0.7-1.1Therapeutic = 2.0-3.0Mec hanical Heart = 3.0-4.5 ID Date Data Source [id number] 12/28/2019 01:51:35 AM EDT [facility] Name Value Range Interpretation Description Data Source(s ) Supporting Code Document(s ) 78808-0 NEGATIVE Normal (applies to SARS-COV-2 IgG [facility] non-numeric [facility] results) Results of antibody testing should not b e used to determine fitness for work or isolation status.It is not known for svetlana grady whether individuals infected with SARS-CoV-2 who subsequently recover will be protected, either fully or partially, from infection with SARS-CoV-2 or how lo ng protective immunity may last. It is also not known whether the presence or absenc e of antibody can predict protection from infection in the future.Results from ant ibody testing should not be used as the sole basis to diagnose or exclude SARS-CoV-2 infection or to inform infection status.Positive results may be due to pa st or present infection with [id number] coronavirus strains, such as coronavirus HKU1, NL63, OC43, or 229E.Not for the screening of donated blood.This test has been authorized by the FDA under an emergency authorization (EUA) for use by authorized laboratories. Reference Range: Negative . Procedure Social History Code Duration Value Status Description Data Source(s ) Smoking 04/25/2020 DENIES ETOH / completed DENIES ETOH / IVDA/ ME DGEN ([facility] 12:00:00 AM EDT IVDA/ [facility] Smoking 04/25/2020 Unknown if ever completed Unknown if ever MEDG EN ([facility] 12:00:00 AM EDT smoked smoked Medical, ) Smoking 04/19/2020 DENIES ETOH / completed DENIES ETOH / IVDA/ ME DGEN ([facility] 12:00:00 AM EDT IVDA/ [facility]) Smoking 04/19/2020 Unknown if ever completed Unknown if ever MEDG EN ([facility] 12:00:00 AM EDT smoked smoked Medical, ) Smoking 04/05/2020 DENIES ETOH / completed DENIES ETOH / IVDA/ ME DGEN ([facility] 12:00:00 AM EDT IVDA/ [facility]) Smoking 04/05/2020 Unknown if ever completed Unknown if ever MEDG EN ([facility] 12:00:00 AM EDT smoked smoked Medical, PC) Smoking 03/20/2020 DENIES ETOH / completed DENIES ETOH / IVDA/ ME DGEN ([facility] 12:00:00 AM EDT IVDA/ [facility]) Smoking 03/20/2020 Unknown if ever completed Unknown if ever MEDG EN ([facility] 12:00:00 AM EDT smoked smoked Medical, ) Vital Signs ID Date Data Source UNK Name Value Range Interpretation Code Description Data Source(s) Heart rate 88 /min 88 /min [place] [place] Respiratory rate 15 /min 15 /min MEDGEN ( [facility]) Inhaled oxygen 99 % 99 % MEDGEN ([facility], ) Body mass index 25.2 kg/m2 25.2 kg/m2 MEDGEN (S t (BMI) [Ratio] [facility] [place], ) Diastolic blood 80 mm[Hg] 80 mm[Hg] MEDGEN (S t pressure [facility] [place]) Systolic blood 150 mm[Hg] 150 mm[Hg] MEDGEN ([facility]) Body weight 156 lb 156 lb MEDGEN ([facility]) Body height 66 in 66 in MEDGEN ([facility]) Heart rate 88 /min 88 /min MEDGEN ([facility]) Respiratory rate 15 /min 15 /min MEDGEN ( [facility]) Inhaled oxygen 99 % 99 % MEDGEN ([facility]) Body mass index 25.2 kg/m2 25.2 kg/m2 MEDGEN (S t (BMI) [Ratio] [facility] [place], ) Diastolic blood 80 mm[Hg] 80 mm[Hg] MEDGEN (S t [facility] [place]) Systolic blood 150 mm[Hg] 150 mm[Hg] MEDGEN ([facility]) Body weight 156 lb 156 lb MEDGEN ([facility]) Body height 66 in 66 in MEDGEN ([facility]) Heart rate 88 /min 88 /min MEDGEN ([facility]) Respiratory rate 15 /min 15 /min MEDGEN ( [facility]) Inhaled oxygen 99 % 99 % MEDGEN ([facility], ) Body mass index 25.2 kg/m2 25.2 kg/m2 MEDGEN (S t (BMI) [Ratio] [facility] [place], ) Diastolic blood 80 mm[Hg] 80 mm[Hg] MEDGEN (S t pressure [facility] [place]) Systolic blood 150 mm[Hg] 150 mm[Hg] MEDGEN ([facility]) Body weight 156 lb 156 lb MEDGEN ([facility]) Body height 66 in 66 in MEDGEN ([facility]) Diastolic blood 90 mm[Hg] 90 mm[Hg] MEDGEN (S t pressure [facility] , ) Systolic blood 140 mm[Hg] 140 mm[Hg] MEDGEN ([facility] , ) Body height 66 in 66 in [facility] [place] [place] Diastolic blood 90 mm[Hg] 90 mm[Hg] MEDGEN (S t pressure [facility] , ) Systolic blood 140 mm[Hg] 140 mm[Hg] MEDGEN ([facility] , ) Body height 66 in 66 in MEDGEN [place] [place] Diastolic blood 90 mm[Hg] 90 mm[Hg] MEDGEN (S t pressure [facility] , ) Systolic blood 140 mm[Hg] 140 mm[Hg] MEDGEN ([facility] , ) Body height 66 in 66 in MEDGEN [place] [place] Diastolic blood 90 mm[Hg] 90 mm[Hg] MEDGEN (S t pressure [facility] , ) Systolic blood 140 mm[Hg] 140 mm[Hg] MEDGEN ([facility] , ) Body height 66 in 66 in [facility]GEN [place] [place]
[2020-05-05] MEDS ORDERED: DEXAMETHASONE SOD PHOSPHATE 4 MG/1 ML VIAL ONE (07:14)
[2020-05-05] MEDS ORDERED: LIDOCAINE HCL/PF 1% SDV 5ML VIAL ONE (07:14)
--- NOTE | 2020-05-05 08:54 | HP ---
Admitting History and Physical - Admission Chief Complaint: Low back pain History of Present Illness: Pt complains of axial low back pain. History Source: Patient - Smoking History Smoking history: Never smoked Home Medications - Allergies Allergies/Adverse Reactions: Allergies Allergy/AdvReac Type Severity Reaction Status Date / Time latex Allergy Intermediate Rash Verified 05/05/20 07:13 Penicillins Allergy Intermediate Rash Verified 05/05/20 07:13 povidone-iodine Allergy Intermediate Rash Verified 05/05/20 07:13 [From Betadine] soap [From Betadine] Allergy Intermediate Rash Verified 05/05/20 07:13 - Home Medications Home Medications: Ambulatory Orders Amlodipine Besylate 5 mg PO DAILY 04/06/20 Cholecalciferol (Vitamin D3) [Vitamin D3 -] 1,000 unit PO DAILY 04/06/20 Hydroxyzine Pamoate 25 mg PO TID 04/06/20 Levothyroxine [Synthroid -] 75 mcg PO DAILY 04/06/20 Losartan Potassium 50 mg PO DAILY 04/06/20 Vortioxetine Hydrobromide [Trintellix] 10 mg PO DAILY 04/06/20 metFORMIN HCL [Metformin HCl] 850 mg PO BID 04/06/20 clonazePAM [Clonazepam] 0.5 mg PO Q12H 05/04/20 Review of Systems - Review of Systems Constitutional: reports: No Symptoms Eyes: reports: No Symptoms HENT: reports: No Symptoms Neck: reports: No Symptoms Cardiovascular: reports: No Symptoms Respiratory: reports: No Symptoms Gastrointestinal: reports: No Symptoms Genitourinary: reports: No Symptoms Breasts: reports: No Symptoms Reported Musculoskeletal: reports: Back Pain Integumentary: reports: No Symptoms Neurological: reports: No Symptoms Endocrine: reports: No Symptoms Hematology/Lymphatic: reports: No Symptoms Psychiatric: reports: No Symptoms Physical Examination Vital Signs: Vital Signs Temperature 97.3 F L 05/05/20 07:09 Pulse Rate 73 05/05/20 07:09 Respiratory Rate 16 05/05/20 07:09 Blood Pressure 115/68 05/05/20 07:09 O2 Sat by Pulse Oximetry (%) 99 05/05/20 07:09 Constitutional: Yes: Well Nourished, No Distress, Calm Eyes: Yes: WNL, Conjunctiva Clear, EOM Intact HENT: Yes: Atraumatic, Normocephalic Neck: Yes: Supple, Trachea Midline Cardiovascular: Yes: Regular Rate and Rhythm Respiratory: Yes: Regular Musculoskeletal: Yes: Back Pain Extremities: Yes: WNL Neurological: Yes: WNL, Alert, Oriented ...Motor Strength: WNL Imaging - Results X-ray: Report Reviewed, Image Reviewed Assessment/Plan The patients pain is secondary to Lumbar facet arthropathy. 1. I will perform diagnostic Lumbar medial branch blocks Bilateral.
[2020-05-05] MEDS ORDERED: LIDOCAINE HCL 1% PRESERVATIVE FREE - 30ML VIAL IJ ONE (09:01)
[2020-05-05] MEDS ORDERED: BUPIVACAINE HCL/PF 0.75% 10 ML VIAL NR ONE (09:02)
[2020-05-05] MEDS ORDERED: IOHEXOL 180 MG/1 ML ML IJ ONE (09:02)
[2020-05-05 10:01] VITALS: BP 110/70; PULSE 60; TEMP 98.3
== END 2020-05-05 09:40 | disposition home or self-care (01) ==
LOC: JASU-SURG 05:19
PROVIDERS: ATTEND Pain Medicine Pain Medicine
PROC: BR16YZZ Fluoroscopy of Lumbar Facet Joint(s) using Other Contrast (ICD-10-PCS; 2020-05-05)
PROC: 3E0T3BZ Introduction of Anesthetic Agent into Peripheral Nerves and Plexi, Percutaneous Approach (ICD-10-PCS; principal; 2020-05-05 08:30)
DX: M47.896 Other spondylosis, lumbar region (principal)
CPT/HCPCS: 76000-TC-FY

== ENCOUNTER 2020-06-02 04:16 | Day surgery (SDC) | payer OTHER ==
[2020-05-31 18:50] VITALS: BMI 25.4
[~2020-06-02 04:16] MED LIST: IOHEXOL 180 MG/1 ML ML IJ ONE
[2020-06-02] MEDS ORDERED: LIDOCAINE HCL/PF 1% SDV 5ML VIAL ONE (07:10)
[2020-06-02] MEDS ORDERED: BUPIVACAINE HCL/PF 0.25% (2.5MG/ML) 10 ML VIAL ONE (07:10)
[2020-06-02] MEDS ORDERED: TRIAMCINOLONE ACET 40MG/1ML VIAL ONE (07:10)
[2020-06-02] MEDS ORDERED: BUPIVACAINE HCL 50 ML ONE (07:11)
[2020-06-02] MEDS ORDERED: BUPIVACAINE HCL/PF 0.75% 10 ML VIAL ONE (07:11)
[2020-06-02] MEDS ORDERED: BUPIVACAINE HCL 0.5% 250 MG/50 ML VIAL IJ ONE (08:13)
[2020-06-02] MEDS ORDERED: IOHEXOL 180 MG/1 ML ML IJ ONE (08:13)
[2020-06-02] MEDS ORDERED: LIDOCAINE HCL 1% PRESERVATIVE FREE - 30ML VIAL IJ ONE (08:13)
[2020-06-02] MEDS ORDERED: TRIAMCINOLONE ACET 40MG/1ML VIAL IM ONE (08:13)
[2020-06-02 09:43] VITALS: BP 126/70; PULSE 78; TEMP 97.8
== END 2020-06-02 09:43 | disposition home or self-care (01) ==
LOC: JASU-SURG 04:16
PROVIDERS: ATTEND Pain Medicine Pain Medicine
PROC: 3E0U3BZ Introduction of Anesthetic Agent into Joints, Percutaneous Approach (ICD-10-PCS; 2020-06-02)
PROC: 3E0U33Z Introduction of Anti-inflammatory into Joints, Percutaneous Approach (ICD-10-PCS; principal; 2020-06-02 08:00)
DX: M53.3 Sacrococcygeal disorders, not elsewhere classified (principal)
CPT/HCPCS: 76000-TC-FY

== ENCOUNTER 2020-07-07 04:58 | Day surgery (SDC) | payer OTHER ==
[2020-07-05 17:03] VITALS: BMI 29.4
[~2020-07-07 04:58] MED LIST changes: +BUPIVACAINE HCL/PF 0.5% (5 MG/ML) 30 ML VIAL IJ ONE
[2020-07-07] MEDS ORDERED: BUPIVACAINE HCL/PF 0.25% (2.5MG/ML) 10 ML VIAL ONE (07:11)
[2020-07-07] MEDS ORDERED: LIDOCAINE HCL/PF 1% SDV 5ML VIAL ONE (07:11)
[2020-07-07] MEDS ORDERED: DEXAMETHASONE SOD PHOSPHATE/PF 10 MG/ML SDV ONE (07:11)
[2020-07-07] MEDS ORDERED: BUPIVACAINE HCL 50 ML ONE (07:11)
[2020-07-07] MEDS ORDERED: TRIAMCINOLONE ACET 40MG/1ML VIAL ONE (07:11)
[2020-07-07] MEDS ORDERED: BUPIVACAINE HCL/PF 0.5% (5 MG/ML) 30 ML VIAL IJ ONE (09:33)
[2020-07-07] MEDS ORDERED: IOHEXOL 180 MG/1 ML ML IJ ONE (09:33)
[2020-07-07 12:50] VITALS: BP 131/82; PULSE 81; TEMP 96
== END 2020-07-07 11:20 | disposition home or self-care (01) ==
LOC: JASU-SURG 04:58
PROVIDERS: ATTEND Pain Medicine Pain Medicine
PROC: BR14YZZ Fluoroscopy of Cervical Facet Joint(s) using Other Contrast (ICD-10-PCS; 2020-07-07)
PROC: 3E0T3BZ Introduction of Anesthetic Agent into Peripheral Nerves and Plexi, Percutaneous Approach (ICD-10-PCS; principal; 2020-07-07 09:00)
DX: M47.812 Spondylosis without myelopathy or radiculopathy, cervical region (principal)

== ENCOUNTER 2020-08-04 04:25 | Day surgery (SDC) | payer OTHER ==
[2020-08-03 09:49] VITALS: BMI 26.8
[~2020-08-04 04:25] MED LIST changes: +BUPIVACAINE HCL/PF 0.25% (2.5MG/ML) 10 ML VIAL IJ ONE; +DEXAMETHASONE SOD PHOSPHATE 10 MG/1 ML VIAL IM ONE; +LIDOCAINE HCL 1% PRESERVATIVE FREE - 30ML VIAL IJ ONE
[2020-08-04] MEDS ORDERED: TRIAMCINOLONE ACET 40MG/1ML VIAL ONE (07:30)
[2020-08-04] MEDS ORDERED: DEXAMETHASONE SOD PHOSPHATE/PF 10 MG/ML SDV ONE (07:31)
[2020-08-04] MEDS ORDERED: BUPIVACAINE HCL 50 ML ONE (07:32)
[2020-08-04] MEDS ORDERED: BUPIVACAINE HCL/PF 0.75% 10 ML VIAL ONE (07:32)
[2020-08-04] MEDS ORDERED: LIDOCAINE HCL/PF 2% SDV 5ML VIAL ONE (07:41)
[2020-08-04] MEDS ORDERED: IOHEXOL 180 MG/1 ML ML IJ ONE (08:23)
[2020-08-04] MEDS ORDERED: BUPIVACAINE HCL/PF 0.5% (5MG/ML) 10 ML VIAL IJ ONE ×2 (08:24)
[2020-08-04 10:02] VITALS: BP 123/74; PULSE 71; TEMP 98
== END 2020-08-04 09:45 | disposition home or self-care (01) ==
LOC: JASU-SURG 04:25
PROVIDERS: ATTEND Pain Medicine Pain Medicine
PROC: 3E0T33Z Introduction of Anti-inflammatory into Peripheral Nerves and Plexi, Percutaneous Approach (ICD-10-PCS; 2020-08-04)
PROC: 3E0T3BZ Introduction of Anesthetic Agent into Peripheral Nerves and Plexi, Percutaneous Approach (ICD-10-PCS; principal; 2020-08-04 08:30)
DX: M47.812 Spondylosis without myelopathy or radiculopathy, cervical region (principal)
CPT/HCPCS: 76000-TC-FY; J1100